=== PATIENT | female | born 1980 | race Caucasian/White ===

== ENCOUNTER 2018-01-29 13:05 | Inpatient (IN) | payer OTHER ==
[~2018-01-29 13:05] MED LIST: CITRIC ACID/SODIUM CITRATE 30 ML UNIT-DOSE CUP PO ONE; ELECTROLYTE-148 SOLN 1,000 ML IV ONE
[2018-01-29] MEDS ORDERED: ELECTROLYTE-148 SOLN 1,000 ML IV SCH (14:05)
[2018-01-29 14:30] VITALS: BMI 31.1
--- NOTE | 2018-01-29 14:32 | HP ---
Past Medical History - Primary Care Physician PCP:: Marlys Chun - Admission Chief Complaint: Breech presentation. AMA. IUp at 39 week History of Present Illness: 37 yo EDC 02/02/18 EGA 39 weeks with surendra breech presentation for Primary section AMA History Source: Patient - Past Medical History ...: 8 ...Para: 1 ...Induced : 6 ...EDC by Dates: 02/02/18 ...EDC by Sono: 02/03/18 - Past Surgical History Past Surgical History: Yes: None Hx Myomectomy: No Hx Transabdominal Cerclage: No Additional Surgical History: Abdominoplasty. Lipo suction5 yr ago - Smoking History Smoking history: Never smoked Have you smoked in the past 12 months: No - Alcohol/Substance Use Hx Alcohol Use: No History of Substance Use: reports: None - Social History Usual Living Arrangement: Yes: With Spouse History of Recent Travel: No Home Medications - Allergies Allergies/Adverse Reactions: Allergies Allergy/AdvReac Type Severity Reaction Status Date / Time No Known Allergies Allergy Verified 01/29/18 13:59 - Home Medications Home Medications: Ambulatory Orders Tablet 1 tablet PO DAILY 01/06/18 Review of Systems - Review of Systems Constitutional: reports: No Symptoms Eyes: reports: No Symptoms HENT: reports: No Symptoms Neck: reports: No Symptoms Cardiovascular: reports: No Symptoms Respiratory: reports: No Symptoms Gastrointestinal: reports: No Symptoms Genitourinary: reports: No Symptoms Breasts: reports: No Symptoms Reported Musculoskeletal: reports: No Symptoms Integumentary: reports: No Symptoms Neurological: reports: No Symptoms Endocrine: reports: No Symptoms Hematology/Lymphatic: reports: No Symptoms Psychiatric: reports: No Symptoms Physical Exam - Maternity Constitutional: Yes: Well Nourished, No Distress Neck: Yes: WNL Cardiovascular: Yes: WNL Lungs: Clear to auscultation Breast(s): Yes: WNL - Abdominal Exam/OB Fundal Height: 39 Number of Fetuses: Single Presentation: Breech Contractions: No Monitor Mode: External Heart Rate (range): 140 Heart Rate Location: [facility] Category: I Accelerations: Non-Uniform Decelerations: None - Vaginal Exam/OB Speculum Exam: No Dilatation (cm): closed Amniotic Membrane Status: Intact Presentation: Vertex/Position - Physical Exam Musculoskeletal: Yes: WNL Extremities: Yes: WNL Edema: No Integumentary: Yes: WNL Psychiatric: Yes: WNL, Alert, Oriented Hemorrhage Risk Assessment - Risk Factors Risk Score: 1 Risk Level: Medium Risk Problem List - Problems (1) 39 weeks gestation of Code(s): Z3A.39 - 39 WEEKS GESTATION OF (2) Breech presentation Code(s): O32.1XX0 - MATERNAL CARE FOR BREECH PRESENTATION, UNSP Assessment/Plan iup at 39 weeks Breech presentation Cat 1 Beta strep neg Plan Primary low transverse Section
[2018-01-29] MEDS ORDERED: morphine SULFATE/Preservative Free 0.5 MG/ML (1cc Syringe) ONE (14:57)
[2018-01-29] MEDS ORDERED: ceFAZolin SODIUM 1 GM VIAL ONE (15:02)
--- NOTE | 2018-01-29 15:06 | OP ---
Operative Note - Note: Operative Date: 01/29/18 Pre-Operative Diagnosis: Breech presentation Operation: Primary Low transverse Section Post-Operative Diagnosis: Same as Pre-op Surgeon: Marlys Chun Inspector Screen Printing: Jose Luis Rivas Anesthesia: Spinal Estimated Blood Loss (mls): 600 Operative Report Dictated: Yes
[2018-01-29] MEDS ORDERED: METHYLERGONOVINE MALEATE 0.2 MG/1 ML AMP IM PRN (15:10)
[2018-01-29] MEDS ORDERED: OXYTOCIN 20 UNITS in 0.9% NS 20 UNIT/1,000 ML INFUS.BAG IV SCH (15:15)
[2018-01-29] MEDS ORDERED: ONDANSETRON 4 MG/2 ML VIAL IVPUSH PRN (15:57)
[2018-01-29] MEDS ORDERED: TUBERCULIN PPD 5 TU/0.1ML SYRINGE (IN PATIENT USE ONLY) ID ONE (16:00)
[2018-01-29 16:05] LABS: ARTERIAL BLOOD GAS BASE EXCESS 0.8 meq/l (-2-2); ARTERIAL BLOOD GAS PCO2 55.6 mmHg (35-45); ARTERIAL BLOOD GAS pH 7.32 (7.35-7.45)
[2018-01-29] MEDS ORDERED: PHENYLEPHRINE HCL 10 MG/1 ML SINGLE DOSE VIAL ONE (16:05)
[2018-01-29 16:12] LABS: VENOUS PC02 44.3 mmHg (38-52); VENOUS PH 7.38 (7.32-7.42); VENOUS PO2 25.7 mmHg (28-48)
[2018-01-29 16:18] LABS: ARTERIAL BLD GAS O2 SATURATION 23.4 % (90-98.9); ARTERIAL BLOOD GAS PO2 16.7 mmHg (80-100)
[2018-01-29] MEDS: IBUPROFEN 800 MG/8 ML IJ IVPB PRN (18:07)
--- NOTE | 2018-01-30 07:51 | OP ---
DATE OF OPERATION: 01/29/2018 PREOPERATIVE DIAGNOSIS: Surendra breech presentation and intrauterine at 39 weeks. OPERATION: Low transverse, primary section. POSTOPERATIVE DIAGNOSIS: Surendra breech presentation and intrauterine at 39 weeks and live male . SURGEON: Marlys Chun MD SHRIMP HEADER: DOUG Miranda ANESTHESIA: Spinal. ANESTHESIOLOGIST: Aung Juan MD FINDINGS: Live male infant delivered in surendra breech position. PROCEDURE: Patient was taken to the operating room, placed in supine position, prepped and draped in the usual sterile fashion. After timeout had been performed in accordance to hospital regulation, Pfannenstiel skin incision was made with a scalpel. Cautery was then used to go through layers of abdominal wall to the level of the fascia. Fascia was cut in the midline, and cautery was then used to open the fascia in the following fashion. Micaela was then used to bluntly and sharply dissect the rectus muscles off the fascia. Muscles split in the midline. Peritoneal cavity was then entered and carried upward and downward. Bladder retractor was then placed. Scalpel was then used to make a low transverse uterine incision. Incision was carried upward using bandage scissors. Surendra breech position was noted. Legs were delivered without difficulty, the arms were delivered without difficulty, and head was delivered without difficulty. Delayed cord sampling was done. Cord was clamped and cut. Cord pH and cord blood obtained. Infant handed to glove brusher. Placenta was manually extracted from the uterus. Uterus exteriorized and cleaned with clean laparotomy pads. Uterine incision then closed using 0 Biosyn suture. First layer of continuous and locking, second layer imbricating the first layer. Hemostasis was achieved. Tubes and ovaries were noted to be normal. Uterus interiorized. Abdominal cavity cleaned with clean laparotomy pads. Peritoneum closed using 0 Biosyn suture. Fascia was then closed using 0 Vicryl suture in 2 parts. Subcutaneous was approximated using 0 Biosyn suture. Skin was then closed using a 3-0 Vicryl in subcuticular fashion. Wound was washed and dressed. Patient had tolerated the procedure well. Steri-Strips placed. ESTIMATED BLOOD LOSS: 600 mL Kishore MENG/[id number]
--- NOTE | 2018-01-30 07:53 | PN ---
Post Progress Note - Subjective Subjective: 37 yo Para 2 status post primary , seen and evaluated. She's lying in bed, c/o incision pain. Post Day: 1 Type of Delivery: Primary C/S Vital Signs: Vital Signs Temperature 98.9 F 01/30/18 06:00 Pulse Rate 95 H 01/30/18 06:00 Respiratory Rate 20 01/30/18 07:00 Blood Pressure 95/60 01/30/18 06:00 O2 Sat by Pulse Oximetry (%) 98 01/29/18 17:25 Breast Exam: Yes: Soft Uterus: Yes: Fundus Firm Incision: Yes: Dressing dry and intact Abdomen/GI: Yes: Abdomen soft Lochia: Yes: Rubra Lochia, amount: Small Extremities: Yes: Calves non-tender Perineum: Yes: Intact Activity: Other (She's lying in bed) Problem List - Problems (1) Status post primary low transverse section Code(s): Z98.891 - HISTORY OF UTERINE SCAR FROM PREVIOUS SURGERY Assessment/Plan Status post primary Ambulation Analgesia as needed Continue routine post op care
[2018-01-30 08:04] LABS: BASO % 0.3 % (0-2.0); EOS % 0.2 % (0-4.5); HEMATOCRIT 33.3 % (32.4-45.2); HEMOGLOBIN 11.4 GM/dL (10.7-15.3); LYMPH % 11.4 % (8-40); MCH 29.2 pg (25.7-33.7); MCHC 34.1 g/dl (32.0-36.0); MEAN CELL VOLUME 85.4 fl (80-96); MEAN PLT VOLUME 8.8 fl (7.5-11.1); MONO % 6.3 % (3.8-10.2); NEUT % 81.8 % (42.8-82.8); PLATELET COUNT 177 K/MM3 (134-434); RBC 3.89 M/mm3 (3.60-5.2); RDW 15.4 % (11.6-15.6); WHITE BLOOD COUNT 13.5 K/mm3 (4.0-10.0)
--- NOTE | 2018-01-30 08:24 | PN ---
Progress Note (short form) - Note Progress Note: Anesthesia Post op/Pain Pt seen and examined S:Alert and awake comfortable O: Vital Signs Temperature 98.9 F 01/30/18 06:00 Pulse Rate 95 H 01/30/18 06:00 Respiratory Rate 20 01/30/18 07:00 Blood Pressure 95/60 01/30/18 06:00 O2 Sat by Pulse Oximetry (%) 98 01/29/18 17:25 CBC, BMP 01/30/18 07:22 Current Active Problems 39 weeks gestation of (Acute) Breech presentation (Acute) Status post primary low transverse section (Acute) A/P: s/p c section Doing well post op Continue current care Jitendra Jones MD
[2018-01-30] MEDS: PRENATAL VITAMINS W/ FOLIC ACID TABLET (FP) PO SCH (09:00)
[2018-01-30] MEDS: IBUPROFEN 800 MG/8 ML IJ IVPB PRN (09:21)
[2018-01-30] MEDS ORDERED: oxyCODONE HCL 5 MG TABLET PO PRN (15:11)
[2018-01-30] MEDS: BISACODYL 10 MG SUPP.RECT RC PRN (16:16)
[2018-01-30] MEDS: IBUPROFEN 600 MG TABLET (FP) PO PRN (18:50)
[2018-01-30] MEDS: SIMETHICONE 80 MG TAB.CHEW (FP) PO PRN (18:50)
[2018-01-30] MEDS: oxyCODONE HCL 5 MG TABLET PO PRN (18:51)
--- NOTE | 2018-01-31 07:35 | PN ---
Post Progress Note - Subjective Subjective: 37 yo Para 2 status post primary , seen and evaluated. Doing well. Post Day: 2 Type of Delivery: Primary C/S Vital Signs: Vital Signs Temperature 98.3 F 01/30/18 22:00 Pulse Rate 80 01/30/18 22:00 Respiratory Rate 20 01/30/18 22:00 Blood Pressure 95/58 01/30/18 22:00 O2 Sat by Pulse Oximetry (%) 98 01/29/18 17:25 Breast Exam: Yes: Soft Uterus: Yes: Fundus Firm Incision: Yes: Dressing dry and intact Abdomen/GI: Yes: Abdomen soft, Tolerating PO Lochia: Yes: Rubra Lochia, amount: Small Extremities: Yes: Calves non-tender Perineum: Yes: Intact Activity: Ambulating - Labs Labs: CBC WBC 13.5 K/mm3 (4.0-10.0) H 01/30/18 07:22 RBC 3.89 M/mm3 (3.60-5.2) 01/30/18 07:22 Hgb 11.4 GM/dL (10.7-15.3) D 01/30/18 07:22 Hct 33.3 % (32.4-45.2) D 01/30/18 07:22 MCV 85.4 fl (80-96) 01/30/18 07:22 MCH 29.2 pg (25.7-33.7) 01/30/18 07:22 MCHC 34.1 g/dl (32.0-36.0) 01/30/18 07:22 RDW 15.4 % (11.6-15.6) 01/30/18 07:22 Plt Count 177 K/MM3 (134-434) 01/30/18 07:22 MPV 8.8 fl (7.5-11.1) 01/30/18 07:22 Neutrophils % 81.8 % (42.8-82.8) 01/30/18 07:22 Lymphocytes % 11.4 % (8-40) D 01/30/18 07:22 Monocytes % 6.3 % (3.8-10.2) 01/30/18 07:22 Eosinophils % 0.2 % (0-4.5) 01/30/18 07:22 Basophils % 0.3 % (0-2.0) 01/30/18 07:22 Problem List - Problems (1) Status post primary low transverse section Code(s): Z98.891 - HISTORY OF UTERINE SCAR FROM PREVIOUS SURGERY Assessment/Plan Status post primary Ambulation Analgesia as needed Continue routine post op care
[2018-01-31] MEDS: oxyCODONE HCL 5 MG TABLET PO PRN ×2 (07:58→15:35)
[2018-01-31] MEDS: SIMETHICONE 80 MG TAB.CHEW (FP) PO PRN ×2 (07:58→15:35)
[2018-01-31] MEDS: IBUPROFEN 600 MG TABLET (FP) PO PRN ×2 (07:59→15:36)
[2018-01-31] MEDS: PRENATAL VITAMINS W/ FOLIC ACID TABLET (FP) PO SCH (09:00)
[2018-01-31] MEDS: BISACODYL 10 MG SUPP.RECT RC PRN (21:00)
[2018-02-01 02:06] VITALS: TEMP 98.4
[2018-02-01] MEDS: SIMETHICONE 80 MG TAB.CHEW (FP) PO PRN ×2 (03:34→11:26)
[2018-02-01] MEDS: oxyCODONE HCL 5 MG TABLET PO PRN ×2 (03:34→11:26)
[2018-02-01] MEDS: IBUPROFEN 600 MG TABLET (FP) PO PRN ×2 (03:34→11:27)
--- NOTE | 2018-02-01 04:41 | PN ---
Post Progress Note - Subjective Subjective: 37 yo Para 2 status post primary , seen and evaluated. Doing well. Post Day: 3 Type of Delivery: Primary C/S Vital Signs: Vital Signs Temperature 98.4 F 01/31/18 22:00 Pulse Rate 82 01/31/18 22:00 Respiratory Rate 20 01/31/18 22:00 Blood Pressure 102/66 01/31/18 22:00 O2 Sat by Pulse Oximetry (%) 98 01/29/18 17:25 Breast Exam: Yes: Soft Incision: Yes: Dressing dry and intact Abdomen/GI: Yes: Abdomen soft, Tolerating PO Lochia: Yes: Rubra Lochia, amount: Small Extremities: Yes: Calves non-tender Activity: Ambulating - Labs Labs: CBC WBC 13.5 K/mm3 (4.0-10.0) H 01/30/18 07:22 RBC 3.89 M/mm3 (3.60-5.2) 01/30/18 07:22 Hgb 11.4 GM/dL (10.7-15.3) D 01/30/18 07:22 Hct 33.3 % (32.4-45.2) D 01/30/18 07:22 MCV 85.4 fl (80-96) 01/30/18 07:22 MCH 29.2 pg (25.7-33.7) 01/30/18 07:22 MCHC 34.1 g/dl (32.0-36.0) 01/30/18 07:22 RDW 15.4 % (11.6-15.6) 01/30/18 07:22 Plt Count 177 K/MM3 (134-434) 01/30/18 07:22 MPV 8.8 fl (7.5-11.1) 01/30/18 07:22 Neutrophils % 81.8 % (42.8-82.8) 01/30/18 07:22 Lymphocytes % 11.4 % (8-40) D 01/30/18 07:22 Monocytes % 6.3 % (3.8-10.2) 01/30/18 07:22 Eosinophils % 0.2 % (0-4.5) 01/30/18 07:22 Basophils % 0.3 % (0-2.0) 01/30/18 07:22 Problem List - Problems (1) Status post primary low transverse section Code(s): Z98.891 - HISTORY OF UTERINE SCAR FROM PREVIOUS SURGERY Assessment/Plan Status post primary Ambulation Analgesia as needed Continue routine post op care
[2018-02-01 07:30] LABS: BASO % 0.4 % (0-2.0); EOS % 1.8 % (0-4.5); HEMATOCRIT 32.9 % (32.4-45.2); HEMOGLOBIN 11.2 GM/dL (10.7-15.3); LYMPH % 27.9 % (8-40); MCH 29.1 pg (25.7-33.7); MCHC 34.1 g/dl (32.0-36.0); MEAN CELL VOLUME 85.3 fl (80-96); MEAN PLT VOLUME 8.7 fl (7.5-11.1); MONO % 8.5 % (3.8-10.2); NEUT % 61.4 % (42.8-82.8); PLATELET COUNT 195 K/MM3 (134-434); RBC 3.85 M/mm3 (3.60-5.2); RDW 15.4 % (11.6-15.6); WHITE BLOOD COUNT 9.1 K/mm3 (4.0-10.0)
[2018-02-01 09:09] VITALS: BP 97/70; PULSE 74
[2018-02-01] MEDS: PRENATAL VITAMINS W/ FOLIC ACID TABLET (FP) PO SCH (09:34)
--- NOTE | 2018-02-01 11:16 | DS ---
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 Vital Signs: Vital Signs Temperature 98.4 F 02/01/18 09:07 Pulse Rate 74 02/01/18 09:07 Respiratory Rate 20 02/01/18 09:07 Blood Pressure 97/70 02/01/18 09:07 O2 Sat by Pulse Oximetry (%) 98 01/29/18 17:25 Constitutional: Yes: Well Nourished, No Distress Gastrointestinal: Yes: WNL, Normal Bowel Sounds Breast(s): Yes: WNL Musculoskeletal: Yes: WNL Extremities: Yes: WNL Edema: No Wound/Incision: Yes: Clean/Dry, Well Approximated Labs: CBC, BMP 02/01/18 07:05 Delivery - Delivery Type of Anesthesia: Spinal Episiotomy/Laceration: None EBL (cc): 600 Delivery, Single - Stages of Labor Date of Delivery: 01/29/18 Time of Delivery: 15:31 Time Placenta Delivered: 15:32 - Condition of Infant Tab Builder/Videographer Present: Yes Name: Annalise Nix Infant Gender: Male Weight: 6 lb Total Hours ROM (Hrs/Mins): 0/2 - 1 Minute Total Score: 9 5 Minutes Total Score: 9 - Feeding Plan Initial Plan: Elected not to breastfeed exclusively throughout hospitalization Discharge Summary Reason For Visit: C SECTION Current Active Problems 39 weeks gestation of (Acute) Breech presentation (Acute) Status post primary low transverse section (Acute) Procedures: Principal: Primary Section Hospital Course: Unremarkable Condition: Good - Instructions Diet, Activity, Other Instructions: Regular diet No driving, no lifting x 4 weeks F/U with MD in 2 weeks Disposition: HOME - Home Medications Comprehensive Discharge Medication List: Ambulatory Orders Tablet 1 tablet PO DAILY 01/06/18 Docusate Sodium [Colace -] 100 mg PO BID #60 capsule 02/01/18 Oxycodone HCl/Acetaminophen [Percocet 5-325 mg Tablet] 1 - 2 tab PO Q4H #20 tablet MDD 6 02/01/18
--- NOTE | 2018-02-08 15:24 | PATH ---
Surgical Pathology Report Patient Name: LOLIS MURRAY Med. Rec. 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 Specimen(s) Received PLACENTA Clinical History , 39.1 weeks breech presentation 08/20 Final Diagnosis PLACENTA, SECTION: 341 g THIRD TRIMESTER PLACENTA WITH TRIVASCULAR UMBILICAL CORD, FOCAL INTRAPARENCHYMAL HEMORRHAGE (LESS THAN 10% OF PLACENTAL SURFACE), AND UNREMARKABLE PLACENTAL MEMBRANES. Electronically Signed Carolee Reyna M.D. Gross Description The specimen is received fresh labeled placenta and is a 341 gram, 15.0 x 12.5 x 2.8 cm. placenta with attached membranes and umbilical cord. The attached membranes are milian, translucent with focal opacities and insert marginally. The umbilical cord measures 19 cm. in length and averages 1 cm. in diameter. The cord inserts velamentously. No true knots or strictures are identified. Cut surface of the umbilical cord reveals 3 vessels. The surface is hudson-blue with minimal fibrin deposition and appropriate caliber vessels. The maternal surface is red-brown with focal defects. Sectioning reveals a 1.2 cm in greatest dimension hemorrhagic lesion. The remaining placental parenchyma is red-brown and spongy. Control Clerk Subassembly sections are submitted in 4 cassettes as follows: 1-membrane roll and umbilical cord; 2-lesion; 3-4-full thickness sections the placenta. 02/03/2018 saudi02/03/2018
== END 2018-02-01 17:20 | disposition home or self-care (01) | DRG 540 ==
LOC: JLDR 13:05 → J3W 17:34
PROVIDERS: ADMIT Obstetrics & Gynecology; ATTEND Obstetrics & Gynecology
PROC: 10D00Z1 Extraction of Products of Conception, Low, Open Approach (ICD-10-PCS; principal; 2018-01-29)
DX: O32.1XX0 Maternal care for breech presentation, not applicable or unspecified (principal); Z3A.39 39 weeks gestation of pregnancy; Z37.0 Single live birth
CPT/HCPCS: 36415; 36600; 82803; 85025; 88307-TC